=== PATIENT | female | born 1990 | race African-American/Black ===

== ENCOUNTER 2017-04-13 14:38 | Emergency (ER) | payer MEDICAID ==
[~2017-04-13] VITALS: Ht 162.6 cm; Wt 82.1 kg
[2017-04-13 15:17] VITALS: BP 115/74
== END 2017-04-13 16:14 | disposition left against medical advice (07) ==
LOC: ER 14:38
DX: R05 Cough (principal); R50.9 Fever, unspecified; Z53.21 Procedure and treatment not carried out due to patient leaving prior to being seen by health care provider